=== PATIENT | male | born 2000 | race Caucasian/White ===

== ENCOUNTER 2023-07-18 11:16 | Observation (INO) | payer BC, SELFPAY ==
[2023-07-18] VITALS (7 sets, daily range): BP systolic 91–136; BP diastolic 50–69; PULSE 47–60; RESP 16–20; TEMP 36.4–36.8; O2SAT 97–98; BMI 21.7; BMI 21.4
--- NOTE | ~2023-07-18 | XR_ITS ---
EXAMINATION: XR CHEST CLINICAL INFORMATION: Syncope COMPARISON: None available. TECHNIQUE: Frontal view of the chest was obtained. FINDINGS: No significant abnormality is noted involving the heart, lungs, mediastinum, bony thorax or soft tissues. XR/XR chest 1V IMPRESSION: Unremarkable chest examination.
--- NOTE | 2023-07-18 11:43 | ECG_ITS ---
Test Reason : bradycardic Blood Pressure : / mmHG Vent. Rate : 046 BPM Atrial Rate : 046 BPM P-R Int : 130 ms QRS Dur : 108 ms QT Int : 454 ms P-R-T Axes : -05 070 052 degrees QTc Int : 397 ms Sinus bradycardia Early repolarization Otherwise normal ECG No previous ECGs available Referred By: Aleah Gallo Electronically Signed By:BASIL BOOTH MD
[2023-07-18 11:54] LABS: Glucose, Whole Blood 114 mg/dL (60-115)
[2023-07-18 11:56] LABS: MANUAL DIFF FLAG NO
[2023-07-18 11:59] LABS: Basophils Absolute Auto 0.1 X10*3/uL (0.0-0.2); Eosinophils Absolute Auto 0.1 X10*3/uL (0.0-0.4); Eosinophils Percent Auto 1.5 % (0-4); Hemoglobin 13.7 g/dl (14.0-18.0); Imm Gran Abs Auto 0.01 X10*3/uL (0.00-0.03); Imm Gran Pct Auto 0.2 % (0.0-0.4); Lymphocytes Absolute Auto 1.2 X10*3/uL (1.2-4.9); Lymphocytes Percent Auto 22.1 % (20-40); Mean Corpuscular HGB Conc 35.1 g/dl (31.0-36.0); Mean Corpuscular Hemoglobin 30.6 pg (27.0-33.0); Mean Corpuscular Volume 87.2 fL (80.0-98.0); Mean Platelet Volume 10.2 fL (9.4-12.4); Monocytes Absolute Auto 0.4 X10*3/uL (0.1-1.2); Monocytes Percent Auto 7.4 % (2-11); Neutrophils Absolute Auto 3.6 x10*3/uL (2.0-8.3); Neutrophils Percent Auto 67.8 % (45-73); Platelet Count 192 X10*3/uL (160-400); Red Blood Count 4.47 X10*6/uL (4.60-5.80); Red Cell Distribution Width 12.2 % (11.0-16.0); White Blood Count 5.2 X10*3/uL (4.8-10.8)
--- NOTE | 2023-07-18 12:01 | ED.GENADULT ---
HPI - General Adult General Chief complaint: General Medical Stated complaint: WIT ?SZ ACTIVITY PER EMS Time Seen by Provider: 07/18/23 11:38 Source: patient Mode of arrival: EMS Limitations: no limitations History of Present Illness HPI narrative: Patient is a 23-year-old male who presents to the emergency department via EMS after a syncopal episode. He reports that he is employed as an [employer] employee, who was in the parking lot and he felt quite thirsty although he did not have any water with him. He asked a co-worker for something to drink who provided him with water and after a few sips he had a syncopal episode. Per his co-worker he was noticed to drop to the ground and collapsed with loss of consciousness of unknown duration. Per this co-worker to EMS there was no head strike, unfortunately we are unable to make contact with this co-worker as he does not have any contact information for him. When asked, he states that he has a family history of myocardial infarction but seemingly at older ages, does not report any family history in of sudden cardiac at a young age. When asked about past medical history he reports that his mother has advised him he may have ?a blood disease? as she may be a carrier for this but he is on certain what specifically. He denies any precipitating symptoms aside from the sensation of thirst. He does admit that he has had decreased oral intake over the past few days simply due to having a poor appetite. Currently he denies dizziness, lightheadedness, headache, vision changes, neck pain, chest pain, shortness of breath, difficulty breathing, numbness or tingling of the extremities, nausea, vomiting, abdominal pain. Related Data Home Medications Medication Instructions Recorded Confirmed No Known Home Meds 07/18/23 07/18/23 Allergies Allergy/AdvReac Type Severity Reaction Status Date / Time No Known Allergies Allergy Verified 07/18/23 11:37 Review of Systems Review of Systems: Yes all other systems are reviewed and are negative [facility] Past Medical History Attestation statement: The following information was validated with the patient. Source: old records reviewed Medical History No pertinent past medical history Social History Social History Smoked in Last 30 Days: No Use of substances other than those prescribed or required for medical reasons: Yes Substance Use Type: Marijuana Substance Use Frequency: Occasionally Advance Directives: No Advance Directives Information Provided: No Physical Exam ED Vital Signs: Vital Signs - 24 hr 07/18/23 11:38 07/18/23 12:03 07/18/23 12:03 Temperature 97.5 F Pulse Rate 47 L 48 L 51 Pulse Rate [Left Apical] Respiratory Rate 16 Blood Pressure 103/54 L 101/51 L 109/64 Pulse Oximetry 98 Oxygen Delivery Method Room Air 07/18/23 12:03 07/18/23 12:15 07/18/23 13:57 Temperature 98.1 F Pulse Rate 50 48 L Pulse Rate [Left Apical] 47 L Respiratory Rate 16 Blood Pressure 112/58 L 103/61 Pulse Oximetry 98 Oxygen Delivery Method Room Air BMI result Body Mass Index 21.7 Appearance: Alert.?Oriented to person, place and time. No acute distress.?Normal affect. Eyes: Pupils equal, round and reactive to light.? ENT: Pharynx normal.?? Neck: Normal inspection.? Neck supple.?? CVS: Heart sounds normal. Bradycardia.? Pulses normal.?? Respiratory: No respiratory distress.? Lung sounds clear to auscultation bilaterally?? Abdomen: Soft and non-tender. Normoactive bowel sounds. ? Skin: Skin warm and dry.? Normal skin color.? Extremities: No lower extremity edema.? No calf ttp? Neuro: Moves all extremities spontaneously. Sensation intact bilaterally. CN II-XII intact. No focal neuro deficits. Ambulates with normal steady gait. Medications Administered Generic Name Dose Route Start Last Admin Trade Name Freq PRN Reason Stop Dose Admin Sodium Chloride 1,000 mls @ 100 mls/hr 07/18/23 14:45 07/18/23 15:30 Ns IVCONT 07/19/23 00:44 100 mls/hr .Q10H ANDRÉS Administration Sodium Chloride 3 ml 07/18/23 16:00 07/18/23 15:26 0.9 % Sodium Chloride Flush 3 Ml Syringe IVFLUSH Not Given QSHIFT ANDRÉS Discontinued Medications Generic Name Dose Route Start Last Admin Trade Name Freq PRN Reason Stop Dose Admin Sodium Chloride 1,000 mls @ 999 mls/hr 07/18/23 11:45 07/18/23 13:57 Ns IV 07/18/23 12:45 Infused .Q1H1M ANDRÉS Infusion Medical Decision Making Medical Decision Making [facility] Narrative: Patient is a 23-year-old male with no reported past medical history presenting to emergency department for evaluation after a syncopal episode. There was no prodromal/ preceding symptoms by his report, has no focal neurological deficits upon examination, denies family history of sudden cardiac , no JVD, no edema, no murmur appreciated. Bradycardic, patient is unaware of baseline for him, denies being highly athletics, blood pressure is soft 103/54. Initial EKG revealing a sinus bradycardia early repolarization, ventricular rate is 46, QTC is prolonged 454 MS, QTC normal 397 MS, no ST elevation, no ST depression, no T-wave inversion. Orthostatic vital signs are negative, though he does have a sudden increase in pulse by approximately 30 beats per minute for a few seconds after each position changing before going back to bradycardia. Differential Diagnosis Differential Diagnoses: The differential diagnosis associated with the presentation includes (Arrhythmia, ACS, CVA, anemia, dehydration, vasovagal) Admission/Observation Consideration of admission/observation: Escalation of care including admission/observation considered (See narrative above in course narrative for further detail) Consult Healthcare Provider Management of the patient was discussed with: Hospitalist and Research Manager (Cardiology see course narrative) Lab Data [facility] Lab Attestation statement: I reviewed the patient's lab results. CBC is without leukocytosis, mild normocytic anemia but does not require transfusion. No electrolyte abnormality. No DEEPAK. High sensitive troponin within normal range. BNP within normal range. Normal Mag. Ethanol level nondetectable. 07/18/23 11:50 07/18/23 11:50 Labs: Lab Results 07/18/23 07/18/23 Range/Units 11:44 11:50 WBC 5.2 (4.8-10.8) X10*3/uL RBC 4.47 L (4.60-5.80) X10*6/uL Hgb 13.7 L (14.0-18.0) g/dl Hct 39.0 L (42.0-52.0) % MCV 87.2 (80.0-98.0) fL MCH 30.6 (27.0-33.0) pg MCHC 35.1 (31.0-36.0) g/dl RDW 12.2 (11.0-16.0) % Plt Count 192 (160-400) X10*3/uL MPV 10.2 (9.4-12.4) fL Immature Gran % (Auto) 0.2 (0.0-0.4) % Neut % (Auto) 67.8 (45-73) % Lymph % (Auto) 22.1 (20-40) % [place] % (Auto) 7.4 (2-11) % Eos % (Auto) 1.5 (0-4) % Baso % (Auto) 1.0 (0-2) % Lymph # (Auto) 1.2 (1.2-4.9) X10*3/uL [place] # (Auto) 0.4 (0.1-1.2) X10*3/uL Eos # (Auto) 0.1 (0.0-0.4) X10*3/uL Baso # (Auto) 0.1 (0.0-0.2) X10*3/uL Abs Immat Gran (auto) 0.01 (0.00-0.03) X10*3/uL Absolute Neuts (auto) 3.6 (2.0-8.3) x10*3/uL Absolute Nucleated RBC 0.000 (0.0-0.012) X10*3/uL Nucleated RBC % (auto) 0.0 (0.0-0.2) /100WBC PT 13.4 H (11.1-13.3) SEC INR 1.1 (0.9-1.1) D-Dimer High Sensitivty < 150 NG/ML Sodium 141 (135-145) mmol/L Potassium 3.7 (3.3-5.1) mmol/L Chloride 107 (96-108) mmol/L Carbon Dioxide 27 (22-29) mmol/L Anion Gap 11 L (12-20) BUN 12 (9-16) mg/dL Creatinine 0.89 (0.5-1.4) mg/dL Estim Creat Clear Calc 139.6 Estimated GFR > 60 POC Glucose 114 (60-115) mg/dL Random Glucose 107 (60-115) mg/dL Calcium 9.4 (8.4-10.2) mg/dL Magnesium 1.9 (1.6-2.6) mg/dL Total Bilirubin 0.8 (0.0-1.0) mg/dL AST 12 (5-37) U/L ALT 12 (0-40) U/L Alkaline Phosphatase 56 (39-117) U/L Troponin I High Sens < 2.7 (<3.5-35.0) ng/L B-Natriuretic Peptide 17 (<100) pg/mL Total Protein 6.8 (6.5-8.0) g/dL Albumin 4.3 (3.5-5.0) g/dL Ethyl Alcohol < 10 mg/dL Independent Interpretation I performed an independent interpretation of an: EKG (See narrative above) Independent Historian Clinical information obtained from an independent historian. History obtained from or confirmed by: EMS Critical Care Time Critical Care Time Critical Care Time: Yes Total Critical Care Time: 40 Attestation: I personally attest to this critical care time spent taking care of the patient exclusive of all other billable procedures was approximately 40 minutes including initial evaluation of patient, ordering tests, EKG interpretation, medical consultation, documentation, re-evaluation. Discharge Plan Discharge Clinical Impression: Syncopal episodes Patient Disposition: Admitted As Inpatient
[2023-07-18 12:11] LABS: INTERNATIONAL NORM RATIO 1.1 (0.9-1.1); Prothrombin Time 13.4 SEC (11.1-13.3)
[2023-07-18] MEDS: 0.9 % Sodium Chloride 1,000 ML 999 ML IV (12:26)
[2023-07-18 12:31] LABS: Ethanol < 10 mg/dL
[2023-07-18 12:32] LABS: Alanine Aminotransferase 12 U/L (0-40); Albumin Level 4.3 g/dL (3.5-5.0); Alkaline Phosphatase 56 U/L (39-117); Anion Gap 11 (12-20); Aspartate Amino Transferase 12 U/L (5-37); Bilirubin Total 0.8 mg/dL (0.0-1.0); Blood Urea Nitrogen 12 mg/dL (9-16); Calcium 9.4 mg/dL (8.4-10.2); Carbon Dioxide 27 mmol/L (22-29); Chloride 107 mmol/L (96-108); Creatinine Clr Calc Pharmacy 139.6; Estimated Glomerular Filt Rate > 60; Glucose Random 107 mg/dL (60-115); Magnesium 1.9 mg/dL (1.6-2.6); Potassium 3.7 mmol/L (3.3-5.1); Sodium 141 mmol/L (135-145); Total Protein 6.8 g/dL (6.5-8.0)
[2023-07-18 12:36] LABS: B Type Natriuretic Peptide 17 pg/mL (<100)
[2023-07-18 12:42] LABS: Troponin-I High Sensitivity < 2.7 ng/L (<3.5-35.0)
--- NOTE | 2023-07-18 12:55 | PC.NURSE ---
patient a&ox3, iv previously inserted by ems, labs drawn, ekg performed, agronomy supervisor applied- pt sinus johnnie on monitor, orthostats performed, ivf hung per order, pt currently has no c/o pain/discomfort, denies dizziness at this time, call amaro within reach, will continue to monitor
[2023-07-18 13:18] LABS: D Dimer High Sensitivity < 150 NG/ML
--- NOTE | 2023-07-18 13:56 | P.HPHOSP_ITS ---
History of Present Illness Date of Service: 07/18/23 Attending physician on admission: Mark Borjas Chief Complaint: Syncopal episode Pt is a 23-year-old male without any known significant PMH not on home medications who presents to the ED for evaluation of witnessed syncopal episode while at work. 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 Woke today in his normal state of health and went to work. Just prior to starting deliveries had a team meeting while standing in the parking lot. Patient states he suddenly had a ?flash? of thirstiness and felt dehydrated. Asked a colleague for water as he did not have any of his own, took a few sips of at and then syncopized. Could not verify from EMS or coworkers how long LOC lasted, but coworkers denied he had a head strike. Patient himself denies any other prodromal symptoms: No lightheadedness or dizziness. Reports some maternal family history of cardiac conditions, though is uncertain exactly what those are. Reports he has been busy working this past week and not eating and drinking as much as normal during this time. Reports he is active at work with walking, though does not regualrly workout or run. Denies any recent illness. No fever, chills, nausea, vomiting, diarrhea. No abdominal pain. Denies any chest pain/pressure, palpitations. No shortness of breath, cough. Currently patient feels back to baseline. In the ED pt was bradycardic as low as 47 with soft BP as low as 101/51. Labs were grossly unremarkable. No leukocytosis. Stable H&H. No electrolyte abnormalities. Kidney and hepatic functions WNL. Troponin negative. BNP WNL. EKG demonstrated sinus bradycardia of 46c and QT 397. Pt was treated with IVF. Pt will be admitted to the hospital under observation for monitoring and further evaluation of syncopal episode. Review of Systems 2 Review of Systems: Syncopal episode without headstrike Prodromal symptom of thirst Denies lightheadedness, dizziness, headache, acute vision change No fever, chills, nausea, vomiting, abdominal pain No chest pain/pressure, palpitations Denies shortness of breath, cough PMFSH Medical History No pertinent past medical history Social History Household Members: Other Household Members Other:: grandmothr Housing: Condominium Do you presently have visiting nurse or other home services: No Patient Tobacco Use Status: Current everyday Tobacco user Tobacco use type: Smokeless Tobacco e-Cigarette/Vaping Use: Currently Using Substance Use Type: Marijuana service: No Meds Allergies Allergy/AdvReac Type Severity Reaction Status Date / Time No Known Allergies Allergy Verified 07/18/23 11:37 Home Medications Medication Instructions Recorded Confirmed Last Taken Type No Known Home Meds 07/18/23 07/18/23 Unknown History Physical Exam 2 Vital Signs and Narrative: Vital Signs: Last Vital Signs Temp 97.5 F 07/18/23 11:38 Pulse 47 L 07/18/23 12:15 Resp 16 07/18/23 11:38 BP 112/58 L 07/18/23 12:03 Pulse Ox 98 07/18/23 11:38 O2 Del Method Room Air 07/18/23 11:38 BMI result Body Mass Index 21.7 Constitutional: Alert, in no acute distress. Mental Status: Oriented to person, place and time. Eyes: Pupils are equal, round, and reactive to light. Ear, Nose, and Throat: Oropharynx clear, mucous membranes moist. Ears and nose without deformities. Trachea midline. Respiratory: Clear to auscultation bilaterally. No wheezing, rales, or rhonchi. Cardiovascular: S1, S2 regular. No murmurs, rubs, or gallops. Gastrointestinal: Abdomen soft, non-tender, non-distended. Normal bowel sounds. Neurologic: Cranial nerves II-XII are grossly intact bilaterally. No focal neurological deficits. Moves all extremities spontaneously. Skin: Warm, dry. Musculoskeletal: No cyanosis or clubbing. Extremities: No edema. Psychiatric: Normal mood and affect. Results Labs 07/18/23 11:50 07/18/23 11:50 Labs: Laboratory Results - last 24 hr 07/18/23 07/18/23 11:44 11:50 MCV 87.2 MCH 30.6 MCHC 35.1 RDW 12.2 Plt Count 192 MPV 10.2 Immature Gran % (Auto) 0.2 Neut % (Auto) 67.8 Lymph % (Auto) 22.1 [place] % (Auto) 7.4 Eos % (Auto) 1.5 Baso % (Auto) 1.0 Lymph # (Auto) 1.2 [place] # (Auto) 0.4 Eos # (Auto) 0.1 Baso # (Auto) 0.1 Abs Immat Gran (auto) 0.01 Absolute Neuts (auto) 3.6 Absolute Nucleated RBC 0.000 Nucleated RBC % (auto) 0.0 PT 13.4 H INR 1.1 D-Dimer High Sensitivty < 150 Anion Gap 11 L Estim Creat Clear Calc 139.6 Estimated GFR > 60 POC Glucose 114 Random Glucose 107 Calcium 9.4 Magnesium 1.9 Total Bilirubin 0.8 AST 12 ALT 12 Alkaline Phosphatase 56 Troponin I High Sens < 2.7 B-Natriuretic Peptide 17 Total Protein 6.8 Albumin 4.3 Ethyl Alcohol < 10 Assessment and Plan (1) Syncopal episodes: Status: Acute Plan Pt is a 23-year-old male without any known significant PMH not on home medications who presents to the ED for evaluation of witnessed syncopal episode while at work. Pt will be admitted to the hospital under observation for monitoring and further evaluation of syncopal episode. Syncopal episode Witnessed syncope without head strike at work with only prodrome of thirstiness Etiology unclear: Differential includes vasovagal, cardiac; orthostatics negative EKG showing normal sinus rhythm with bradycardia of 46 and normal QTc of 397 Patient received IVF in ED Will give additional 1 L IVF @ 100mls/hr Will check CXR, RSV/COVID/flu Echocardiogram Cardiology consult Monitor on telemetry Full Code Attending:?Dr. Borjas DVT Prophylaxis: Pt ambulatory Patient will be admitted to the hospital under observation for further evaluation of syncopal episode. Patient will require additional testing and close cardiac monitoring. . Quality Stroke Does the patient have a stroke diagnosis?: No VTE Prior VTE?: No VTE Risk Level:: Medical - low VTE Device Contraindication: Treatment Not Indicated VTE Drug Contraindication: Treatment Not Indicated
--- NOTE | 2023-07-18 14:06 | PC.NURSE ---
Addendum entered by Humberto Leonardo RN 07/18/23 14:24: PT DENIES LIGHTHEADEDNESS/DIZZINESS/GANDARA. DENIES PAIN. Original Note: HR 47, AMADOU ABBOTT IS AWARE. ADMISSION TO HOSPITAL FOR FURTHER EVALUATION AND CARDIAC TESTING IS RECOMMENDED BY DR. PABON, DOUBLE END SEWER. PT AWARE OF PLAN. VS UPDATED IN COMPUTER.
--- NOTE | 2023-07-18 15:23 | PHA.MEDREC ---
Pharmacy Consult ? Medication Reconciliation Pharmacy has completed the medication reconciliation.
[2023-07-18] MEDS: 0.9 % Sodium Chloride 1,000 ML 100 ML IVCONT (15:30)
--- NOTE | 2023-07-18 17:39 | PC.NURSE ---
patient a&ox3, boat puller intact sinus johnnie on monitor- vitals otherwise wnl, ivf running per order, pt denies pain/discomfort, call amaro within reach, will continue to monitor
[2023-07-18 21:45] LABS: Appearance Urine Clear; Color Urine Yellow; Glucose Urine UA Negative (Negative); Leukocyte Esterase Urine Negative (Negative); Nitrite Urine Negative (Negative); Urine Blood Negative (Negative); Urine Ketones Negative (Negative); Urine Protein Negative (Neg-Trace)
[2023-07-18 22:34] LABS: Amphetamine Screen Urine Not Detected (Not Detect); Barbiturates, Urine Not Detected (Not Detect); Benzodiazepines Screen Urine Not Detected (Not Detect); Cannabinoid Screen Urine POSITIVE (Not Detect); Cocaine Screen Urine Not Detected (Not Detect); Fentanyl, urine Not Detected (Not Detect); Opiate Screen Urine Not Detected (Not Detect); Phencyclidine Screen Urine Not Detected (Not Detect)
[2023-07-19 03:59] VITALS: BP 124/54; PULSE 55; RESP 18; TEMP 36.4; O2SAT 98
[2023-07-19 07:19] VITALS: BP 140/75; PULSE 45; RESP 18; TEMP 36.9; O2SAT 98
--- NOTE | 2023-07-19 09:42 | MHC.CM.PN ---
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
[2023-07-19 10:20] VITALS: BP 131/65; PULSE 52
[2023-07-19 10:25] VITALS: BP 145/81; PULSE 67
[2023-07-19 10:30] VITALS: BP 140/75; PULSE 57
--- NOTE | 2023-07-19 12:12 | MHC.CM.PN ---
Pt has been medically cleared for DC, he will go home via family transport.
--- NOTE | 2023-07-19 12:14 | PM.CNCAR ---
History of Present Illness History of Present Illness Date of Service: 07/19/23 Requesting physician: Mark Borjas Consult reason: other (Syncope) Chief complaint: syncopal episode Narrative: I was consulted to see Reji in cardiology consultation today for syncopal episode. 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 Yesterday while he was at his job reporting, he said he went to work he was feeling fine. While at work he suddenly started feeling not well and said he felt suddenly dehydrated fell that he needs to drink water got fuzzy and had blurry vision. He then looked around for water but was not able to finding. Then he said down then he got up looking for water again and then he said down was drinking water and then he remembers dropping his water and getting up and then next thing he remembers he passed out. Exact duration passing his not known. Denies any palpitation, chest pain shortness of breath prior to that. He says he never had similar episodes in the past. He works a lot recently and says not been paying attention to his hydration as much. He has never had a syncopal episode in the past. No family history for premature sudden cardiac that. Review of Systems Constitutional: Constitutional: Reports no additional constitutional complaints Eyes: Eyes: Reports no additional eye complaints ENT: Reports system reviewed and no additional complaints, except as documented Cardiovascular: Cardiovascular: Denies chest pain, Reports Loss of Consciousness, Denies palpitations and Denies dyspnea Respiratory: Respiratory: Reports no additional respiratory complaints and Denies dyspnea Gastrointestinal: Gastrointestinal: Reports no additional gastrointestinal complaints Genitourinary: Genitourinary: Reports no additional male genitourinary complaints Neurologic: Reports system reviewed and no additional complaints, except as documented Psychiatric: Psychiatric: Reports no additional psychiatric complaints Endocrine: Endocrine: Reports no additional endocrine complaints and Denies palpitations Allergic/Immunologic: Allergic/Immunologic: Reports no additional allergic/immunologic complaints [facility] Past Medical History Medical History No pertinent past medical history Social History Social History Household Members: Other Household Members Other:: grandmothr Housing: Condominium Do you presently have visiting nurse or other home services: No Patient Tobacco Use Status: Current everyday Tobacco user Tobacco use type: Smokeless Tobacco Smoked in Last 30 Days: No e-Cigarette/Vaping Use: Currently Using Frequency of e-Cigarette/Vaping Use: daily Patient Given Instructions on How to Stop Smoking: Yes Date Education Initiated: 07/18/23 Use of substances other than those prescribed or required for medical reasons: Yes Substance Use Type: Marijuana Substance Use Frequency: Weekly Last Used Substance Other:: 07/02/23 Currently Displaying Signs/Symptoms of Drug Intoxication Withdrawal: No Any prior treatment program specific to substance use: No Have you been hit, kicked, punched, or otherwise hurt by someone within the past year? If so, by whom?: No Do you feel safe in your current relationship?: No Current Relationship Is there a partner from a previous relationship who is making you feel unsafe now?: No Are you made to feel afraid or neglected: No Spiritual Healthcare Practices: n/a Adventist Healthcare Practices: n/a Cultural Healthcare Practices: n/a Advance Directives: No Advance Directives Information Provided: No Do you have thoughts of harming others: None Do you have a plan to hurt others: No Plan Recently lost weight without trying: No How much weight loss: Not applicable Eating poorly because of decreased appetite: No Nutrition screen score: 0 service: No Meds Allergies Allergy/AdvReac Type Severity Reaction Status Date / Time No Known Allergies Allergy Verified 07/18/23 11:37 Active Medications: Current Medications Acetaminophen (Acetaminophen 325 Mg Tablet) 650 mg PO Q6H PRN PRN Reason: Pain, Mild (Pain Scale 1-3) Benzonatate (Benzonatate 100 Mg Capsule) 100 mg PO TID PRN PRN Reason: Cough Melatonin (Melatonin 3 Mg Tablet) 6 mg PO BEDTIME PRN PRN Reason: Insomnia Ondansetron HCl (Ondansetron Hcl 4 Mg/2 Ml Vial) 4 mg IVPUSH Q8H PRN PRN Reason: Nausea and Vomiting Sodium Chloride (0.9 % Sodium Chloride Flush 3 Ml Syringe) 3 ml IVFLUSH [facility] Last Admin: 07/19/23 12:01 Dose: Not Given Home Medications Medication Instructions Recorded Confirmed Last Taken Type No Known Home Meds 07/18/23 07/18/23 Unknown History Physical Exam Vital Signs: Vital Signs: Last Vital Signs Temp 98.5 F 07/19/23 07:19 Pulse 57 07/19/23 10:30 Resp 18 07/19/23 07:19 BP 140/75 H 07/19/23 10:30 Pulse Ox 98 07/19/23 07:19 O2 Del Method Room Air 07/19/23 07:19 BMI result Body Mass Index 21.4 Const: General: cooperative, comfortable, no acute distress, alert, awake and Physically active Nutritional Appearance: average body habitus Orientation/consciousness: patient oriented x3 Limitations: no limitations HEENT: Head: Yes normocephalic and Yes atraumatic Neck: Neck: Yes trachea midline, Yes supple and Yes no JVD Resp: Effort & Inspection: normal respiratory effort Auscultation: clear to auscultation bilaterally Cardio: Jugular venous distension: no JVD Palpation: normal PMI Rate: regular rate Rhythm: regular rhythm Heart sounds: S1 normal heart sound present, S2 normal heart sound present, no click, no gallops, no murmurs and no rubs GI: Auscultation: normal bowel sounds Skin: General skin exam: no rashes or lesions noted Neuro: General: patient oriented x3 and no focal motor deficits Extrem: General: Yes no clubbing, cyanosis or edema Psych: Appearance: grossly normal Objective Labs and Meds 07/18/23 11:50 07/18/23 11:50 Lab results: Laboratory Results - last 24 hr 07/18/23 07/18/23 07/18/23 11:44 11:50 21:00 D-Dimer High Sensitivty < 150 Sodium 141 Potassium 3.7 Chloride 107 Carbon Dioxide 27 Anion Gap 11 L BUN 12 Creatinine 0.89 Estim Creat Clear Calc 139.6 Estimated GFR > 60 POC Glucose 114 Random Glucose 107 Calcium 9.4 Magnesium 1.9 Total Bilirubin 0.8 AST 12 ALT 12 Alkaline Phosphatase 56 Troponin I High Sens < 2.7 B-Natriuretic Peptide 17 Total Protein 6.8 Albumin 4.3 Urine Color Yellow Urine Appearance Clear Urine pH 7.0 Ur Specific [place] 1.010 Urine Protein Negative Urine Glucose (UA) Negative Urine Ketones Negative Urine Blood Negative Urine Nitrite Negative Ur Leukocyte Esterase Negative Urine Opiates Screen Not Detected Urine Fentanyl Screen Not Detected Ur Barbiturates Screen Not Detected Ur Phencyclidine Scrn Not Detected Ur Amphetamines Screen Not Detected U Benzodiazepines Scrn Not Detected Urine Cocaine Screen Not Detected U Marijuana (THC) Screen POSITIVE H Ethyl Alcohol < 10 EKG is within normal limits Imaging Radiologist's impression: Impressions Chest X-Ray 07/18/23 14:43 IMPRESSION: Unremarkable chest examination. Assessment and Plan (1) Syncopal episodes: Status: Acute Patient 1 episode of syncope which appears to me clinically to be vasovagal in nature. Possibly related to recent poor oral intake in relative hypovolemia. Mechanism of vasovagal syncope was discussed. Noted to have overnight sinus bradycardia while he is resting. This is not unusual in a young person. Walking the hallways heart rate promptly jumped up into the 90s. Check orthostatic vitals. There is no clear high risk factors identified at this point time. I discussed in details about pathophysiology of reflux/vasovagal syncope with him. Advised to maintain adequate hydration and salt intake. Advised to monitor blood pressure at home. Will set up for outpatient workup including echo, Holter and head-up tilt-table testing. Management was discussed with him in details. 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 Will follow with him as outpatient. Procedures Date of Service Date of Service: 07/19/23
--- NOTE | 2023-07-19 17:33 | PM.DS ---
DS: Providers Provider Date of Service: 07/19/23 Date of admission: 07/18/23 14:28 Primary care physician: None Physician Consults: 07/18/23 20:03 Consult to Cardiology Routine Consulting Provider: [facility] Reason for consultation: Syncopal episode, bradycardia 07/18/23 21:42 Addiction Medicine Routine Consulting Provider: Addiction Covering Reason for consultation: ETOH screening score of 9 Has provider been notified: Yes DS: Diagnosis Discharge Diagnosis (1) Syncopal episodes: Status: Acute DS: Summary Hospital Course Hospital Course: History of presenting illness: Date of Service: 07/18/23 Attending physician on admission: Mark Borjas Chief Complaint: Syncopal episode Pt is a 23-year-old male without any known significant PMH not on home medications who presents to the ED for evaluation of witnessed syncopal episode while at work. 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 Woke today in his normal state of health and went to work. Just prior to starting deliveries had a team meeting while standing in the parking lot. Patient states he suddenly had a ?flash? of thirstiness and felt dehydrated. Asked a colleague for water as he did not have any of his own, took a few sips of at and then syncopized. Could not verify from EMS or coworkers how long LOC lasted, but coworkers denied he had a head strike. Patient himself denies any other prodromal symptoms: No lightheadedness or dizziness. Reports some maternal family history of cardiac conditions, though is uncertain exactly what those are. Reports he has been busy working this past week and not eating and drinking as much as normal during this time. Reports he is active at work with walking, though does not regualrly workout or run. Denies any recent illness. No fever, chills, nausea, vomiting, diarrhea. No abdominal pain. Denies any chest pain/pressure, palpitations. No shortness of breath, cough. Currently patient feels back to baseline. In the ED pt was bradycardic as low as 47 with soft BP as low as 101/51. Labs were grossly unremarkable. No leukocytosis. Stable H&H. No electrolyte abnormalities. Kidney and hepatic functions WNL. Troponin negative. BNP WNL. EKG demonstrated sinus bradycardia of 46c and QT 397. Pt was treated with IVF. Pt will be admitted to the hospital under observation for monitoring and further evaluation of syncopal episode. Hospital course: 23-year-old gentleman with no significant past medical history presented to [facility] after a syncopal upper sewed patient admitted to telemetry unit noted to have bradycardia, otherwise tele monitor showed no arrhythmia, chest x-ray unremarkable, no seizure-like activity noted, orthostatic blood pressures are normal, patient had normal cbc, lytes and renal function, EKG showed no heart blocks, patient evaluated by clinical pharmacy coordinator and it was felt that patient had vasovagal syncope, Dr. Urena recommend outpatient echocardiogram and Holter monitor since patient is hemodynamically stable and able to ambulate with heart rates in 90s and stable blood pressure therefore he is being discharged home with strong recommendation to stay hydrated and follow-up with Cardiology. Time Attestation Discharge Coordination Time (in mins): 35 Quality: Safe Use of Opioids Does Pt have an Active Cancer Diagnosis on the Problem List?: No Quality: Stroke Does the patient have a stroke diagnosis?: No Physical Exam Vital Signs: Vital Signs: Last Vital Signs Temp 98.5 F 07/19/23 07:19 Pulse 57 07/19/23 10:30 Resp 18 07/19/23 07:19 BP 140/75 H 07/19/23 10:30 Pulse Ox 98 07/19/23 07:19 O2 Del Method Room Air 07/19/23 07:19 BMI result Body Mass Index 21.4 Const: Other: General awake alert x3, resting comfortably in no acute distress. Neck supple no JVD. CVS regular rate rhythm, Respiratory lungs clear to auscultation, no respiratory distress, no wheeze, no rhonchi. Gastrointestinal abdomen soft, non tender, bowel sounds audible, no guarding , no rigidity. Extremities no edema. Neuro non focal Skin no rash Psych appropriate affect DS: Data Data Completed and Pending Labs on day of discharge: Laboratory Results - last 24 hr 07/18/23 21:00 Urine Color Yellow Urine Appearance Clear Urine pH 7.0 Ur Specific [place] 1.010 Urine Protein Negative Urine Glucose (UA) Negative Urine Ketones Negative Urine Blood Negative Urine Nitrite Negative Ur Leukocyte Esterase Negative Urine Opiates Screen Not Detected Urine Fentanyl Screen Not Detected Ur Barbiturates Screen Not Detected Ur Phencyclidine Scrn Not Detected Ur Amphetamines Screen Not Detected U Benzodiazepines Scrn Not Detected Urine Cocaine Screen Not Detected U Marijuana (THC) Screen POSITIVE H Discharge Plan Discharge Anticipated Discharge Date/Time: 07/19/23 11:08 Patient Disposition: Home, Self-Care Discharge Diagnosis: Syncope Referrals: Physician,Unknown J [Physician] - 1 Week Discharge Medications: No Action No Known Home Meds Discharge Orders: Discharge Order (Routine); Ordered 07/19/23 Ordered By: Mark Borjas Diet: Advance to usual diet Activity on Discharge: As tolerated Stand Alone Forms: Patient Portal Discharge page Care Plan Goals: Syncope likely vasovagal/stay hydrated Health Concerns: Bradycardia asymptomatic Plan of Treatment: Outpatient follow-up with clinical pharmacy coordinator Dr. Devante Urena for outpatient workup including echocardiogram and Holter monitor Assessment: As above Discharge Date/Time: 07/19/23 11:30
== END 2023-07-19 11:30 | disposition home or self-care (01) ==
LOC: HO.ED 12:21 → HO.EDOVER 14:43 → HO.IMC 17:42
PROVIDERS: Nurse Practitioner Family; Admitting Provider Student in an Organized Health Care Education/Training Program; Emergency Provider Student in an Organized Health Care Education/Training Program; Visit Provider Hospitalist
DX: R55 Syncope and collapse (principal); R00.1 Bradycardia, unspecified; Z82.49 Family history of ischemic heart disease and other diseases of the circulatory system
CPT/HCPCS: 36415; 71045; 80053; 80307; 81003; 82947; 83735; 83880; 84484; 85025; 85379; 85610; 93005; 96360; 96361; 99222; 99285

== ENCOUNTER → 2023-07-18 11:43 | Outpatient (BNV) | payer BC, SELFPAY | PROVIDERS: Admitting Provider Student in an Organized Health Care Education/Training Program; Emergency Provider Student in an Organized Health Care Education/Training Program; Visit Provider Internal Medicine Cardiovascular Disease | DX: R00.1 Bradycardia, unspecified (principal) | CPT/HCPCS: 93010 ==

== ENCOUNTER → 2023-07-18 14:28 | Outpatient (BNV) | payer BC, SELFPAY | PROVIDERS: Admitting Provider Student in an Organized Health Care Education/Training Program; Emergency Provider Student in an Organized Health Care Education/Training Program; Visit Provider Internal Medicine Cardiovascular Disease | DX: R55 Syncope and collapse (principal) | CPT/HCPCS: 99222 ==

== ENCOUNTER → 2023-07-18 14:28 | Outpatient (BNV) | payer BC, SELFPAY | PROVIDERS: Admitting Provider Student in an Organized Health Care Education/Training Program; Emergency Provider Student in an Organized Health Care Education/Training Program; Visit Provider Hospitalist | DX: R55 Syncope and collapse (principal) | CPT/HCPCS: 99222; 99239 ==

== ENCOUNTER → 2023-08-12 13:38 | Outpatient (REF) | payer BC, SELFPAY ==
--- NOTE | 2023-08-12 13:41 | CA_ITS ---
Transthoracic Echocardiogram Patient (Last, First, Middle): Reji Choudhury, Gender: Male Date of : 2000 Age: 23 Procedure Date: 08/12/2023 Procedure Type: Transthoracic Echocardiogram Location: OP Height: 185.42 cm Weight: 72.58 kg BSA: 1.96 m2 Heart Rate: bpm BP: 116 / 82 mmHg Research Management Associate: JOSELYN Referring MD: Boone Carlisle MD Senior Game Advisor: Boone Carlisle MD Symptoms: R55 - Syncope and collapse Study Quality: Adequate ECG Rhythm: Sinus Conclusions: - Essentially normal study with mildly dilated left atrium Findings Left Ventricle Normal left ventricular size, thickness, and systolic function. The visually estimated ejection fraction is between 60-65%. Diastolic function is normal for age. Peak GLS is -19.1%, within normal limits. Right Ventricle Normal right ventricular cavity size and systolic function. Atria The left atrium is mildly dilated. There is no evidence of interatrial shunt. The right atrium is normal in size. Aortic Valve Normal aortic valve structure and function. There is no aortic valve stenosis. There is no aortic valve regurgitation. Mitral Valve Normal mitral valve structure and function. There is no mitral valve regurgitation. There is no mitral valve stenosis. Pulmonic Valve The pulmonic valve is likely normal. Tricuspid Valve Normal tricuspid valve structure. There is trace tricuspid valve regurgitation. The right ventricular systolic pressure is normal. The right ventricular systolic pressure is 21 mmHg. Normal right atrial pressure. There is no evidence of pulmonary hypertension. Great Vessels The pulmonary artery was not well visualized. There is no dilatation of the ascending aorta measuring 3.00 cm. Venous The inferior vena cava is normal in size and collapses greater than 50% with inspiration. Pericardium/Pleural There is no evidence of pericardial effusion. Prior Study Comparison No prior study available for comparison. Measurements 2D Linear Measurements IVSd: 0.66 0.6-0.9/0.6-1.0 cm LVIDd: 5.51 3.9-5.3/4.2-5.9 cm LVIDd Index: 2.81 2.4-3.2/2.2-3.1 cm/m2 LVIDs: 3.70 2.0-3.6 cm LVPWd: 0.73 0.7-1.1 cm LA Diam: 3.40 2.7-3.8/3.0-4.0 cm LAIDs Index: 1.73 1.5-2.3 cm/m2 LV Mass: 168.57 67-162/88-224 g LV Mass Index: 86.00 43-95/49-115 g/m2 LVOT Diam: 2.20 3.0+(-)1.3 cm 2D Systolic Function EF 4C: 65.50 >55% EF 2C: 61.10 >55% EF BiP: 63.90 >55% Mitral Valve MV Pk E: 0.68 MV PK A: 0.42 MV Decel Time: 276.00 E/A: 1.60 E'Lateral: 15.80 E'Medial: 10.00 E/E' Med: 6.80 E/E' Lat: 4.30 PHT: 81.00 MVA PHT: 2.72 Decel Wolfe: 2.46 Aortic Valve AoV Pk Anup: 1.38 AoV Mn Anup: 0.95 AoV VTI: 0.31 AoV Pk Grad: 8.00 Aov Mn Grad: 4.00 NEL Cont.VTI: 2.62 LVOT LVOT Pk Anup: 0.92 LVOT Mn Anup: 0.62 LVOT VTI: 0.21 LVOT Pk Grad: 3.00 LVOT Mn Grad: 2.00 LVOT Diam: 2.20 LVOT Area: 3.80 Diastolic Function MV Pk E: 0.68 MV Pk A: 0.42 E/A: 1.60 E'Medial: 10.00 E/E' Med: 6.80 E' Laterial: 15.80 E/E' Lat: 4.30 Right Ventricle TAPSE (mm): 24.40 TVS' Anup: 11.60 Tricuspid Valve TR Pk Anup: 2.14 TR Pk Grad: 18.00 RA Press: 3.00 RVSP: 21.00 Great Vessels Aorta Sinus of Valsalva: 3.08 2.0-3.[address] [place]: 2.57 1.7-3.4 cm Ao Asc: 3.00 2.1-3.4 cm Updated in Other Vendor System with Status of Final Boone Carlisle MD electronically signed on 08/13/2023 1:40:39 PM with status of Final
--- NOTE | 2023-08-12 13:41 | HM_ITS ---
Conclusion: 1. Patient was monitored for total period of 3 days 2. Baseline was normal sinus rhythm with average heart of 68 beats per minute 3. No significant pauses noted 4. Occasional PACs noted 5. 1 3 beat run of nonsustained VT at 215 beats per minute 6. Patient marked the counter 1 time without any symptoms reported correlating with sinus rhythm MTDD
== END ==
LOC: HO.CARD 13:38
PROVIDERS: Visit Provider Internal Medicine Cardiovascular Disease
DX: R55 Syncope and collapse (principal)
CPT/HCPCS: 93242; 93306; 93356

== ENCOUNTER → 2023-08-12 13:41 | Outpatient (BNV) | payer BC, SELFPAY | PROVIDERS: Visit Provider Internal Medicine Cardiovascular Disease | DX: I49.1 Atrial premature depolarization (principal) | CPT/HCPCS: 93244; 93306; 93356 ==